=== PATIENT | female | born 1960 | race African-American/Black ===

== ENCOUNTER 2022-08-22 13:00 | Outpatient (RCR) | payer MEDICAID, SELFPAY | END 2022-10-18 13:45 | disposition home or self-care (01) | PROVIDERS: Visit Provider Family Medicine | DX: R53.1 Weakness (principal); Z51.89 Encounter for other specified aftercare | CPT/HCPCS: 97012; 97110; 97162 ==

== ENCOUNTER 2024-02-20 08:43 | Outpatient (CLI) | payer MEDICAID, SELFPAY ==
--- OUTSIDE RECORDS SUMMARY | 2024-02-20 08:46 | XMS_ITS | Clinical Summary ---
Author Organization [facility] Address [place], [place] [address] Care Team Providers Care Orthotist Or Prosthetist Name Role Phone Votel, Hunter Tsai MD Primary Care Provider + Allergies Active Allergy Reactions Criticality Noted Date Comments Ibuprofen *Unknown 06/01/2021 Medications Medication Sig Dispensed Refills Start Date End Date Status cetirizine (ZYRTEC) 10 mg tablet once daily. Active cholecalciferol, Vitamin D3, 2,000 unit tablet once daily. Active triamcinolone, 55 mcg each actuation, nasal (NASACORT AQ) 55 mcg nasal spray Inhale 2 Sprays to both nostrils once daily. 16.9 mL 06/01/2021 Active lancets Use with lancing device 3 times daily for 1 month then decrease to once daily 100 Each 07/13/2021 Active artificial tears, peg 400-propylene glycol, (Systane) 0.4-0.3 % ophthalmic dropperette Place 1-2 Drops into both eyes. 0 06/09/2022 Active durable medical equipment (DME)Indications:Le ft foot pain,Sprain of anterior talofibular ligament of left ankle, initial encounter,Foot sprain, left, initial encounter Stabilizing Speed Pro, Small 1 Each 10/07/2022 Active blood sugar diagnostic (Accu-Chek Guide test strips) stripIndications:Ty pe 2 diabetes mellitus without complication, without long-term current use of insulin (HC) Test 1 time daily 100 Each 3 08/26/2023 Active amLODIPine (NORVASC) 2.5 mg tabletIndications:H TN (hypertension) Take 1 Tablet (2.5 mg) by mouth once daily. 90 Tablet 3 09/26/2023 Active atorvastatin (LIPITOR) 40 mg tabletIndications:H ypercholesterolemia Take 1 Tablet (40 mg) by mouth at bedtime. 90 Tablet 3 09/26/2023 Active metFORMIN (GLUCOPHAGE XR) 500 mg Extended-Release tabletIndications:T ype 2 diabetes mellitus without complication, without long-term current use of insulin (HC) Take 1 Tablet (500 mg) by mouth two times daily with meals. 180 Tablet 3 09/26/2023 Active Active Problems Problem Noted Date Diagnosed Date ASCUS with positive high risk HPV cervical 02/07 Overview: 01/2022 ASCUS/HPV+, HPV 16/18 negative 03/2022 [place]: No biopsy 01/2023 LSIL/HPV+, HPV 16/18 negative. Plan: Pap/HPV due 01/2024. Type 2 diabetes mellitus wit hout complication, without long-term current use of insulin 06/02/2021 Gastroesophageal reflux disease 06/01/2021 HTN (hypertension) 06/01/2021 Allergic rhinitis 06/01/2021 Hypercholesterolemia 07/02/2019 Polyp of colon Immunizations Name Administration Dates Next Due COVID-19 Vaccine Spikevax (M oderna 50mcg/0.5mL) 12YO+ 4584-7039 Formula PF 10/24/2023 COVID-19 vaccine (Moderna 10 0mcg/0.5mL) PF, MDV 12/12/2020,11/14/2020 COVID-19 vaccine (Moderna Bernard lakshmi 50mcg/0.25mL) PF, MDV 04/15/2022,10/01/2021 COVID-19 vaccine (Intervention [employer]ights-Bio NTech 30mcg/0.3mL) 12YO+ BIVALENT PF, MDV 08/09/2022 Influenza, IIV4 10/24/2023,05/26/2022,06/29/2021 Pneumococcal Conj 20-valent (Prevnar 20) 022 Pneumococcal Poly,23-Valent (Pneumovax) 08/31/20 21 Tdap 06/29/2021 Zoster (Shingrix-RZV, recombinant) 08/09/2022, Family History Medical History Relation Name Comments Lung cancer Brother smoker Heart attack Father Diabetes Mother Heart Disease Mother Hyperlipidemia Mother Hypertension Mother Kidney disease Mother Thyroid Disease Mother Cancer-breast No Family History Cancer-ovarian No Family History Relation Name Status Comments Brother Father (Age 61) Mother Alive Social History Tobacco Use Types Packs/Day Years Used Date Smoking Tobacco: Never Smokeless Tobacco: Never Tobacco Cessation:Counseling Given: Yes Alcohol Use Standard Drinks/Week Comments Not Currently 1 (1 standard drink = 0.6 oz pur e alcohol) PHQ-2 Answer Date Recorded PHQ-2 TOTAL SCORE 0 02/07/2023 Social Connections Answer Date Recorded Frequency of Communication with Friends and Fami ly 0 09/26/2023 Financial Resource Strain Answer Date R ecorded Difficulty of Paying Living Expenses 3 09/26/2023 Difficulty of Paying Living Expenses Not on file 09/26/2023 Food Insecurity Answer Date Recorded Worried About Running Out of Food in the Last Ye ar 1 09/26/2023 Transportation Needs Answer Date Record ed Lack of Transportation (Medical) 1 09/26/2023 Housing Stability Answer Date Recorded Unable to Pay for Housing in the Last Year 1 09/26/2023 Sex and Gender Information Value Date Recorded Sex Assigned at Female 08/30/2021 6:22 PM [employer] Gender Identity Female 08/30/2021 6:22 PM [employer] Sexual Orientation Straight 08/30/2021 6: 22 PM [employer]ER Obstetrics History Para Term AB IAB SAB Ectopic Multiple Livin g Live Births 2 2 2 2 Date Outcome GA Total Labor Labor/2nd/3rd Weight Sex Delivery Anes PTL Sarita A1 A5 Name Cl in Term Term Last Filed Vital Signs Vital Sign Reading Time Taken Comments Blood Pressure 118/83 10/11/2023 7:38 AM REMOTE CONTROL ASSEMBLER Pulse 97 10/11/2023 7:38 AM [employer]OTE CONTROL ASSEM[employer]ER Temperature 36.9 ??C (98.4 ??F) 10/11/2023 7:38 AM CS T Respiratory Rate 16 07/18/2022 9:45 AM CDT Oxygen Saturation 96% 10/11/2023 7:38 AM REMOTE [employer]OL ASSEMBLER Inhaled Oxygen Concentration - - Weight 79.7 kg (175 lb 9.6 oz) 10/11/2023 7:38 A M [employer] Height 154.7 cm (5' 0.9) 10/11/2023 7:38 AM [employer]OL ASSEM[employer]ER Body Mass Index 33.29 10/11/2023 7:38 AM REMOTE CONTROL ASSEMBLER Plan of Treatment Health Maintenance Due Date Last Done Comments Pap test for age 21-65 02/08/2024 , 02/07/2023, 02/07/2022, Additional history exists Depression screening for age 12+ 02/11/2024 02/10/2023, 02/07/2023, 02/07/2023, Additional history exists Influenza for age 50-64 05/19/2024 10/24/19, 05/26/2022, 06/29/2021 Mammogram for age 45-75 09/26/2024 09/26/19, 06/24/2022, 06/07/2021 BMI (ht and wt on same day) for age 18+ 10/11/2024 10/11/2023, 09/26/2023, 02/07/2023, Additional history exists Colonoscopy through age 75 07/18/2027 07/18/2022 Lipids for age 45-75 02/08/2028 02/07/2023, 02/07/2022, 06/01/2021 Tetanus booster 06/29/2031 06/29/2021 Tdap Completed 06/29/2021 Hepatitis C screening for ag e 18-79 Completed 08/31/2021 Zoster (shingles) series for age 50+ Completed 08/09/2022, 05/26/2022 Pneumococcal series for age 6-64 Completed 08/30/20, 08/31/2021 HIV for age 15-65 Completed 02/10/2023 COVID-19 vaccine series Completed 10/24/19 24, 08/09/2022, 04/15/2022, Additional history exists Procedures Procedure Name Priority Date/Time Associated Diagnosis Comments XR MAMMO GEOFF BILAT SCREEN Routine 09/26/2023 8:30 AM [employer]OTE [employer]ER Visit for screening mammogram LC HIV-1/O/2, 4TH GENERATION Routine 02/10/2023 9:29 AM CDT Screening for HIV (human immunodeficiency virus) HPV THIN PREP Routine 02/07/2023 8:13 AM CDT High risk HPV infection LIPID PANEL W REFLEX MEASURED LDL Routine 02/07/2023 7:39 AM CDT Hypercholesterolemia COLONOSCOPY 07/18/2022 8:46 AM CDT ANTI HCV Add On 08/31/2021 7:59 AM [employer]OL [employer]ER Need for hepatitis C screening test from Last 3 Months or Most Recently Relevant to Health Maintenance Results * XR MAMMO GEOFF BILAT SCREEN (09/26/2023 8:30 AM REMOTE CONTROL ASSEMBLER) Anatomical Region Laterality Modality BREASTS, Breast Left, Breast Right Bilateral Mammography Impressions 09/28/2023 1:05 PM [employer]OTE CONTROL [employer]SEMBLER ??There is no radiographic evidence for malignancy. ??Recommend annual mammograms. MAMMOGRAM ASSESSMENT: ??ACR 1 Negative PATIENTS: You will also receive a letter with your examination results in an easy to read format. ??If you have questions about your results, please contact your referring provider. Narrative 09/28/2023 1:05 PM REMOTE CONTROL ASSEMBLER For Patients: As a result of the Century Cures Act, medical imaging exams and procedure reports are released immediately into your electronic medical record. You may view this report before your referring provider. If you have questions, please contact your health care provider. XR MAMMO GEOFF BILAT SCREEN [[id number]] CLINICAL HISTORY: ??This is an asymptomatic 63 y.o. patient. INDICATION FOR EXAM: Mammogram Screening. TECHNIQUE: CC & MLO views were obtained. ??This study was evaluated with the assistance of Computer-Aided Detection. Breast Tomosynthesis was used in interpretation. COMPARISON FILM: Yes 06/24/22 [facility] 06/07/21 [facility] FINDINGS: ??The breasts have scattered areas of fibroglandular density. There are no dominant masses, suspicious micro calcifications or areas of architectural distortion. Hunter Chavez MD MAMMO * LC HIV-1/O/2, 4TH GENERATION (02/10/2023 9:29 AM CDT) HIV Scr 4th Gen Non Reactive Non Reactive 02/15/2023 10:10 AM CDT [facility] ([facility]) Comment: HIV Negative HIV-1/HIV-2 antibodies and HIV-1 p24 antigen were NOT detected. There is no laboratory evidence of HIV infection. Blood BLOOD SPECIMEN / Unknown Recollect / Unknown 02/10/2023 9:29 AM CDT 02/10/2023 9:30 AM CDT Narrative [facility] ([facility]) - 02/15/2023 10:10 AM CDT Performed at: ??01 - [facility] [address] [place] [address] ??[id number] Instructor Painting: Tl Martinez MD, Phone: ??[phone] Hunter Chavez MD LABORATORY [facility] ([facility]) [address] [place] [address] * (ABNORMAL) HPV HIGH RISK (02/07/2023 8:13 AM CDT) Pathologist [facility] TYPE 16 Negative Negative 02/09/2023 4:48 PM CDT [facility] TYPE 18 Negative Negative 02/09/2023 4:48 PM CDT [facility] OTHER HIGH RISK TYPES Positive(A) Negative 02/09/2023 4:48 PM CDT [facility] Other (Cervical) Non-Blood / Unknown 02/07/2023 8:13 AM CDT 02/08/2023 3:00 PM CDT Narrative [facility] - 02/09/2023 4:48 PM CDT Specimen is positive for the DNA of any one of, or combination of, the following high risk HPV types: 31, 33, 35, 39, 45, 51, 52, 56, 58, 59, 66, 68. HPV types 16 and 18 DNA were undetectable or below the pre-set threshold. ? Methodology: [employer] 4800 HPV Test Hunter Chavez MD MICROBIOLOGY [facility] [address] [place] [address], [place] * (ABNORMAL) LIPID PANEL W REFLEX MEASURED LDL (02/07/2023 7:39 AM CDT) CHOLESTEROL,TOTAL 203(H) 100 - 199 mg/dL 02/07/2023 4:11 PM CDT [facility] Comment: Cholesterol, Total Reference Ranges Desirable <200 mg/dL Borderline 200-239 mg/dL High >=240 mg/dL TRIGLYCERIDES 155(H) <150 mg/dL 02/07/2023 4:11 PM CDT [facility] HDL CHOLESTEROL 54 >40 mg/dL 4:11 PM CDT [facility] NON-HDL CHOLESTEROL 149(H) <145 mg/dl 02/07/2023 4:11 PM CDT [facility] CHOL/HDL RATIO 3.76 <4.50 02/07/2023 4:11 PM CDT [facility] LDL CHOLESTEROL 118 <=130 mg/dL 02/07/2023 4:11 PM CDT [facility] VLDL CHOLESTEROL 31(H) <=30 mg/dL 02/07/2023 4:11 PM CDT [facility] PROVIDER ORDERED STATUS RANDOM 02/07/2023 4:11 PM CDT [facility] Blood BLOOD SPECIMEN / Unknown Venipuncture / Unknown 02/07/2023 7:39 AM CDT 02/07/2023 7:41 AM CDT Hunter Chavez MD CHEMISTRY [facility] [address] [place] [address], [place] * COLONOSCOPY (07/18/2022 8:46 AM CDT) 07/18/2022 8:46 AM CDT Narrative Transcriptions Angel Luis Marshall MD - 07/18/2022 9:21 AM CDT Endoscopy Patient Name: Josiane Bowman Procedure Date: 07/18/2022 Gender: Female Date of : 1960 Admit Type: Outpatient Procedure: Colonoscopy Proceduralist: Angel Luis Marshall MD - [facility] Referring MD: Yisel Cunningham Indications/Pre-Op Diagnosis: Colon cancer screening in patient atincreased risk: Family history of 1st-degree relative with colon polyps before age 60 years Medications: Monitored Anesthesia Care Procedure Description: The patient had risks, benefits and alternatives explained to andgave informed consent. The patient had a stable cardiopulmonary status and judged an adequate candidate for conscious sedation. The endoscope was passed through the anus and advanced to the cecum, identified by appendiceal orifice and ileocecal valve. Thecolonoscopy was performed without difficulty. The patient tolerated the procedure well. The quality of the bowel preparation was good. Complications: No immediate complications. Estimated Blood Loss & Specimen: Estimated blood loss: none. Specimen collected: Yes and sent to Laboratory Findings: An 8 mm polyp was found in the proximal transverse colon. The polypwas semi-sessile. The polyp was removed with a cold snare. Resection and retrieval were complete. The sigmoid colon and descending colon were redundant. Internal hemorrhoids were found during retroflexion. The hemorrhoids were Grade II (internal hemorrhoids that prolapse but reduce spontaneously). The exam was otherwise without abnormality. Impressions/Post-Op Diagnosis: - One 8 mm polyp in the proximal transverse colon, removed with acold snare. Resected and retrieved. - Redundant colon. - Internal hemorrhoids. - The examination was otherwise normal. Recommendation: - Repeat colonoscopy for surveillance based on pathology results. No aspirin or NSAIDS for five days. High fiber diet. Angel Luis Marshall MD 07/18/2022 9:21:01 AM This report has been signed electronically. Note Initiated On: 07/18/2022 8:46 AM Total Procedure Duration Time 0 hours 17 minutes 55 seconds Scope Withdrawal Time 0 hours 7 minutes 30 seconds Angel Luis Marshall MD PROCEDURE ORD * ANTI HCV (08/31/2021 7:59 AM REMOTE CONTROL ASSEMBLER) HEPATITIS C ANTIBODY Non-React iglesia Non-React iglesia 08/31/2021 10:21 PM REMOTE CONTROL ASSEMBLER [facility] [employer] [facility] Comment:Antibodies to HCV no t detected; does not exclude the possibility of exposure to HCV. Blood BLOOD SPECIMEN / Unknown Venipuncture / Unknown 08/31/2021 7:59 AM REMOTE CONTROL ASSEMBLER 08/31/2021 7:59 AM REMOTE CONTROL ASSEMBLER Yisel SANTANA SEND OUTS [facility] [address] [place] [address], from Last 3 Months or Most Recently Relevant to Health Maintenance Care Teams Orthotist Or Prosthetist Relationship Specialty Start Date End Date Votel, Hunter Tsai MD [address] [place] [address] PCP - General Family Practice 08/09/22
== END 2024-02-20 08:44 | disposition home or self-care (01) ==
PROVIDERS: PCP Family Medicine; Visit Provider Family Medicine
DX: E78.00 Pure hypercholesterolemia, unspecified (principal); I10 Essential (primary) hypertension; E55.9 Vitamin D deficiency, unspecified; E11.9 Type 2 diabetes mellitus without complications; R53.83 Other fatigue; Z79.84 Long term (current) use of oral hypoglycemic drugs; Z13.21 Encounter for screening for nutritional disorder; Z13.29 Encounter for screening for other suspected endocrine disorder
CPT/HCPCS: 80053; 80061; 82043; 82306; 82570; 82607; 84443

== ENCOUNTER 2024-04-16 11:15 | Outpatient (RCR) | payer MEDICAID, SELFPAY ==
--- NOTE | 2024-03-28 15:30 | PT.OPEX ---
PT [place] Outpatient Eval PT [facility] Outpatient Eval Start: 03/28/24 13:47 Freq: Status: Active Protocol: Document 03/28/24 13:48 [facility] (Rec: 03/28/24 15:25 [facility] [id number]) E-signed By Archie Bautista, PT Physical Therapy Outpatient Evaluation Insurance Information Recert Due Date 06/20/24 Insurance Name [employer] Medical Diagnosis Poor balance - h/o falling Treating Diagnosis Unsteadiness on feet R26.81 Falls R29.6 Muscle weakness (R moreso than L LE) M62.81 Referring MD Hortencia Oscar MD Subjective Preferred Name Josiane Subjective Josiane presents with concerns about bilateral leg weakness (R>L) and numbness/tingling in her feet. She will be walking and all of a sudden fall down. She has a history of cervical disc herniation >1 year ago w/ neck and back pain . Treatment of PT w/ cervical traction was helpful, but she still gets intermittent neck/ back pain; she uses the traction machine every 1-2 weeks at home. She also c/o dizziness every day that is worse in the morning or with standing up. Blood work up was normal. Denies nausea, tinnitus, facial paraesthesias , diplopia. She reports intermittent tingling/swelling in thumbs. Josiane also reports history of a diagnosis of diabetes being missed in [place] for greater than one year. During that time she was passing out, getting sleepy & thirsty. Now that she moved to [place], she was diagnosed and is stable on Metformin. 25 yo granddaughter lives with patient. Falls: ~2x/week, stairs are most challenging. She does have a cane she uses when she feels more weak. PMH: cervical disc herniation x > 1 year ago Pain Comments feet: 8/10 shooting pain, comes & goes Date of Last Physician Visit 03/05/24 Current Work Status Unemployed Precautions Weight Bearing Status Full Weight Bearing Therapy Limitations/Systems Review Other Medical Problem Objective Other/Pertinent Objective BP: Sittin/89 Standing : 122/91 Neuro: intact light touch shivam LE, all dermatomes - negative clonus, no LE rigidity w/ PROM, normal LE tone coordination: knee,manriquez,ankle L: normal R: mildly impaired balance: EC feet together: minimal sway x 10 sec SLR: R: negative for neural tension LE ROM: WNL LE strength: R / L hip flexion: 4-/5 / 4/5 knee ext: 4-/5 / 4+/5 knee flex: 4/5 / 4+/5 ankle DF: 4-/5 4/5 ankle PF: 4-/5 4-/5 hip ext: 4-/5 4-/5 hip abd: 4-/5 4/5 hip add: 4/5 4+/5 Palpation: No pain w/ right patellar mobility or compression Functional Test Performed & Score CUEVAS/56 (low fall risk) SLS: R: 21 sec L: 36 sec, maintained balance 4 steps (3-5) w/ rail: reciprocally, I 8 step: + right patellar moderate pain with ascent/ descent. Only mild left patellar pain with ascent/ descent + movie goers knee R Assessment Assessment/Impression 63 year old female presents with concerns of intermittent falls due to sudden onset of LE weakness or shooting pain into feet (this is less of a problem lately) along with underlying paraesthesias bilateral feet. She also reports having right patellar pain with stair climbing/ descent. Pt's story includes have undiagnosed diabetes while she lived in [place] until ~1 year ago. She has since moved to [place] and started on treatment for her diabetes. Josiane presents with right moreso than left LE weakness, impaired right LE coordination , signs & symptoms consistent with diabetic peripheral neuropathy and symptoms consistent with right patellofemoral dysfunction. Despite her h/o falls, she scored 55/56 on the CUEVAS balance scale, placing her at low risk for falls. So, it seems her falls are conditional on the onset of sudden weakness and/or pain. There may be a mild component of orthostatic hypotension as well. I also am curious whether she has a history of an undiagnosed CVA due to right LE impairments. I do recommend skilled PT to address her above listed impairments, but I also feel she would benefit from a Neurology consult. Primary Functional Limitations stair navigation, up & down, especially leading w/ right leg up/ left leg down Legs suddenly going weak or R knee pain causes her to fall Plan of Care Rehabilitation Potential Good Physical Therapy Goals In 8-10 weeks, patient will: 1) Report 75% reduction in fall or near falls (episode of sudden weakness/pain) while ambulating 2) Ambulate up/down full flight of stairs (as she does at home) reciprocally with one rail, right knee pain max 3) Be I with comprehensive HEP to mitigate fall risk and reduce right knee pain with functional activities Treatment Plan/Direct Interventions Gait Training,Neuromuscular Re -ed,Self-Care/Home Management, Therapeutic Activities, Therapeutic Exercises Frequency/Duration 1x/week Patient Will Be Discharged From Therapy Completion of LTG(s), Independent w/HEP, Independently Progressing Evaluation Billing Untimed Code Treatment Minutes 30 Complexity Moderate Certification Information Initial Certification Date 03/28/24 Ending Certification Date 06/20/24 Provider Signature Required Yes Provider Signature Shows Agreement With POC & Medical Necessity Physician NPI Number Write NPI# Here Physician Comment/Change : Physician Signature & Date Requested Please Sign/Date Here
== END 2024-04-16 14:58 | disposition home or self-care (01) ==
PROVIDERS: PCP Family Medicine; Visit Provider Family Medicine
DX: R26.89 Other abnormalities of gait and mobility (principal); Z91.81 History of falling; Z51.89 Encounter for other specified aftercare
CPT/HCPCS: 97110; 97112; 97162

== ENCOUNTER 2024-05-01 06:59 | Day surgery (SDC) | payer MEDICAID, SELFPAY ==
--- OUTSIDE RECORDS SUMMARY | 2024-05-01 07:02 | XMS_ITS | Clinical Summary ---
Author Organization [facility] Address [place], [place] [address] Care Team Providers Care Special Education Secretary Name Role Phone Votel, Hunter Tsai MD [...] nostrils once daily. 16.9 mL 06/01/2021 Active artificial tears, peg 400-propylene glycol, (Systane) [...] with meals. 180 Tablet 3 09/26/2023 Active lancets (Accu-Chek Softclix Lancets)Indications :Type 2 diabetes mellitus without complication, without long-term current use of insulin (HC) Test one time daily 100 Each 3 03/07/2024 Active Active Problems Problem Noted Date Diagnosed Date ASCUS with positive high risk HPV cervical 02/07 Overview: 01/2022 ASCUS/HPV+, HPV 16/18 negative 03/2022 Reynolds: No biopsy 01/2023 LSIL/HPV+, HPV 16/18 negative. Plan: Pap/HPV due 01/2024. Type 2 diabetes mellitus wit hout complication, without long-term current use of insulin 06/02/2021 Gastroesophageal reflux disease 06/01/2021 HTN (hypertension) 06/01/2021 Allergic rhinitis 06/01/2021 Hypercholesterolemia 07/02/2019 Polyp of colon Encounters Date Type Department Care Team Description 03/07/2024 Lab Requisition [facility] [phone] Yumiko Figueroa MD 03/06/2024 Lab Requisition [facility] [phone] Lilo Oscar MD 03/05/2024 Refill [facility] [place] [address] [place] [address] VotelHunter MD Refill Request (Lancets) from Last 3 Months Immunizations Name Administration Dates Next Due COVID-19 Vaccine Spikevax (M oderna 50mcg/0.5mL) 12YO+ [id number] Formula PF 10/24/2023 COVID-19 vaccine (Moderna 10 0mcg/0.5mL) LUIZ PAULSON 12/12/2020,11/14/2020 COVID-19 vaccine (Moderna Bernard lakshmi 50mcg/0.25mL) PF, MDV 04/15/2022,10/01/2021 COVID-19 vaccine (FriendsterBio NTech 30mcg/0.3mL) 12YO+ BIVALENT PF, MDV 08/09/2022 [...] Sex Assigned at Female 08/30/2021 6:22 PM GROUND PRODUCTS DIRECTOR Gender Identity Female 08/30/2021 6:22 PM GROUND PRODUCTS DIRECTOR Sexual Orientation Straight 08/30/2021 6: 22 PM GROUND PRODUCTS DIRECTOR Obstetrics History Para Term AB IAB SAB Ectopic Multiple Livin g Live Births 2 2 2 2 Date Outcome GA Total Labor Labor/2nd/3rd Weight Sex Type Anes PTL Sarita A1 A5 Name Clin Term Term Last Filed Vital Signs Vital Sign Reading Time Taken Comments Blood Pressure 118/83 10/11/2023 7:38 AM GROUND PRODUCTS DIRECTOR Pulse 97 10/11/2023 7:38 AM GROUND PRODUCTS DIRECTOR Temperature 36.9 ??C (98.4 ??F) 10/11/2023 7:38 AM CS T Respiratory Rate 16 07/18/2022 9:45 AM CDT Oxygen Saturation 96% 10/11/2023 7:38 AM GROUND PRODUCTS DIRECTOR Inhaled Oxygen Concentration - - Weight 79.7 kg (175 lb 9.6 oz) 10/11/2023 7:38 A M GROUND PRODUCTS DIRECTOR Height 154.7 cm (5' 0.9) 10/11/2023 7:38 AM GROUND PRODUCTS DIRECTOR Body Mass Index 33.29 10/11/2023 7:38 AM GROUND PRODUCTS DIRECTOR Plan of Treatment Health Maintenance Due Date Last Done Comments Depression screening for age 12+ 02/11/2024 02/10/2023, 02/07/2023, 02/07/2023, Additional history exists Influenza for age 50-64 05/19/2024 10/24/19, 05/26/2022, 06/29/2021 Mammogram for age 45-75 09/26/2024 09/26/19, 06/24/2022, 06/07/2021 BMI (ht and wt on same day) for age 18+ 10/11/2024 10/11/2023, 09/26/2023, 02/07/2023, Additional history exists Pap test for age 21-65 03/05/2025 , 03/05/2024, 02/07/2023, Additional history exists Colonoscopy through age [...] Procedure Name Priority Date/Time Associated Diagnosis Comments LAB TRACKING EVENT Routine 03/06/2024 3: 10 PM CDT PATH TISSUE EXAM Routine 03/06/2024 3:10 PM CDT PUBLICATIONS WRITER THIN PREP PAP SCREEN IMAGED Routine 03/05/2024 3:15 PM CDT HPV THIN PREP Routine 03/05/2024 3:15 PM CDT LAB TRACKING EVENT Routine 03/05/2024 1: 15 PM CDT XR MAMMO GEOFF BILAT SCREEN Routine 09/26/2023 8:30 AM GROUND PRODUCTS DIRECTOR Visit for screening mammogram LC HIV-1/O/2, 4TH GENERATION Routine 02/10/2023 9:29 AM CDT Screening for HIV (human immunodeficiency virus) LIPID PANEL W REFLEX MEASURED LDL Routine 02/07/2023 7:39 AM CDT Hypercholesterolemia COLONOSCOPY 07/18/2022 8:46 AM CDT ANTI HCV Add On 08/31/2021 7:59 AM GROUND PRODUCTS DIRECTOR Need for hepatitis C screening test from Last 3 Months or Most Recently Relevant to Health Maintenance Results * LAB TRACKING EVENT (03/06/2024 3:10 PM CDT) Only the most recent of2 resultswithin the time period is included. Other (Other) Client Collect / Unknown 03/06/2024 3:10 PM CDT 03/07/2024 2:25 PM CDT Yumiko Qi Figueroa MD LAB BILL ONLY [facility] [address] [place] [address], * PATH TISSUE EXAM (03/06/2024 3:10 PM CDT) Case Report Pathology Report ?Case: [id number] ? Authorizing Provider: ??Vu, Yumiko Busby MD ?Collected: ? 03/06/2024 1510 ? Ordering Location: ? [facility] ?Received: ?03/07/2024 1706 ? Pathologist: ? Jarred James MD ? Specimens: ?? A) - Cervical Biopsy, 5 o'clock ? B) - Cervical Biopsy, 12 o'clock ? C) - Endocervical Curettings, ECC ? 03/11/2024 2:58 PM CDT [facility] Final Diagnosis A) CERVIX, 5:00, BIOPSY: 1. Benign cervical mucosa ?? a. Sampling: Ectocervix ?? b. Transformation zone: Not visualized 2. Negative for glandular neoplasia, squamous intraepithelial lesion, ?? and malignancy B) CERVIX, 12:00, BIOPSY: 1. Benign cervical mucosa ?? a. Sampling: Ectocervix ?? b. Transformation zone: Not visualized 2. Negative for glandular neoplasia, squamous intraepithelial lesion, ?? and malignancy C) ENDOCERVIX, CURETTAGE: 1. Minute fragments of high grade squamous intraepithelial lesion (HUMBERTO 2) 2. Sampling: Ectocervix and endocervix 3. Negative for invasive carcinoma 03/11/2024 2:58 PM CDT [facility] Clinical Information Last Pap 02/07/2023 LSIL/HPV positive Colposcopy 04/13/2022 - No biopsies done Pap 02/07/2022 = ASCUS HPV/Positive 03/11/2024 2:58 PM CDT [facility] Gross Description A) Received in formalin, labeled with the patient's name and A, is a single rosa mucosal fragment measuring 0.4 cm. The specimen is submitted in toto in one cassette. B) Received in formalin, labeled with the patient's name and B, is a single rosa mucosal fragment measuring 0.3 cm. The specimen is submitted in toto in one cassette. C) Received in formalin, labeled with the patient's name and C, is a 2.0 x 0.7 x 0.1 cm aggregate of blood tinged mucous. The specimen is entirely submitted in 1 cassette. [facility] 03/07/2024 03/11/2024 2:58 PM CDT [facility] Microscopic Description The final diagnosis is based on microscopic examination of appropriate sections of all specimens. Immunohistochemica l staining was performed, the results of which are as follows: - p16 (Part C): Aberrant over-expression (strong diffuse positive) 03/11/2024 2:58 PM CDT [facility] Additional Information Interpreted at [facility], Central Laboratory - [address], [place] [address] Immunohistochemist ry controls were reviewed and approved by the pathologist during this examination. 03/11/2024 2:58 PM CDT [facility]-C ENTRAL LABORATORY Other (Cervical Biopsy) 03/06/2024 3:10 PM CDT 03/07/2024 5:06 PM CDT Specimen (specimen) (Cervical Biopsy) 03/06/2024 3:10 PM CDT 03/07/2024 5:06 PM CDT Specimen (specimen) (Endocervical Curettings) 03/06/2024 3:10 PM CDT 03/07/2024 5:06 PM CDT Yumiko Qi Figueroa MD PATHOLOGY/CYTOLOGY [facility] [address] [place] [address], * (ABNORMAL) PUBLICATIONS WRITER THIN PREP PAP SCREEN IMAGED (03/05/2024 3:15 PM CDT) Case Report Gynecologic Cytology Report ? Case: [id number] ? Authorizing Provider: ??Lilo Oscar MD ??Collected: ? 03/05/2024 1515 ? Ordering Location: ? [facility] ?Received: ?03/07/2024 1214 ? First Screen: ?Ammy Glaser ? Pathologist: ? Albaro Fields Jr., ? MD ? Specimen: ?PUBLICATIONS WRITER ThinPrep Vial Screening, Cervical/Vaginal ? 03/19/2024 8:57 AM CDT [facility] EN[facility]AL LAB[facility]AT[facility] INTERPRETATION/ RESULT ATYPICAL SQUAMOUS CELLS OF UNDETERMINED SIGNIFICANCE (ASCUS)(A) (none) 03/19/2024 8:57 AM CDT [facility] IMEN ADEQUACY Satisfactory for evaluation No endocervical component seen 03/19/2024 8:57 AM CDT [facility] LABORATORY-C ENTRAL LABORATORY HPV REQUEST HPV and PAP 03/19/2024 8:57 AM CDT [facility] ENTRAL LABORATORY Date of LMP 03/19/2024 8:57 AM CDT [facility] LAB[facility]AT[facility] Comment:Unknown Last Pap Date 02/07/2023 03/19/2024 8:57 AM CDT [facility] LAB[facility]AT[facility] Last Pap Result LSIL 8:57 AM CDT [facility] Abnormal Pap or Reynolds Bx in last 5 years Yes 03/19/2024 8:57 AM CDT [facility] LABORATORY-C ENTRAL LABORATORY Menstrual Status Postmenopausal 03/19/2024 8:57 AM CDT [facility] EN[facility]AL LABORATORY Reynolds Bx Done Today No 03/19/2024 8:57 AM CDT [facility] Additional Information 03/19/2024 8:57 AM CDT [facility] Comment: Interpreted at [facility] - [address] [facility] [[email or web address] [address], [place] [address] Automated Review Successful 03/19/2024 8:57 AM CDT [facility] Comment:Specimen processed s uccessfully by automated academic support director device, ThinPrep Imaging System, [employer] ANCILLARY TESTING PUBLICATIONS WRITER HPV Ordered, Please see separate report 03/19/2024 8:57 AM CDT [facility] Note The pap test is a screening technique, not a diagnostic procedure. It is used primarily to screen for squamous cancers and precursor lesions. Published studies have shown that it is subject to both false negative and false positive results. The pap test should not be used as the sole means to diagnose or exclude pre-malignant and malignant lesions. 03/19/2024 8:57 AM CDT [facility] Other (Cervical/Vagina l) 03/05/2024 3:15 PM CDT 03/07/2024 12:14 PM CDT Lilo Oscar MD PATHOLOGY/CYTOLO GY [facility] [address] [place] [address], * (ABNORMAL) HPV HIGH RISK (03/05/2024 3:15 PM CDT) TYPE 16 Negative Negative 03/08/2024 4:12 PM CDT [facility] TYPE 18 Negative Negative 03/08/2024 4:12 PM CDT [facility] OTHER HIGH RISK TYPES Positive(A) Negative 03/08/2024 4:12 PM CDT [facility] Other (Cervical/Vagina l) 03/05/2024 3:15 PM CDT 03/07/2024 12:14 PM CDT Narrative [facility]AL LABORATORY - 03/08/2024 4:12 PM CDT Specimen is positive for the DNA of any one of, or combination of, the following high risk HPV types: 31, 33, 35, 39, 45, 51, 52, 56, 58, 59, 66, 68. HPV types 16 and 18 DNA were undetectable or below the pre-set threshold. ? Methodology: Yaron Rosaura 4800 HPV Test Lilo Oscar MD MICROBIOLOGY [facility] [address] [place] [address], * XR MAMMO GEOFF BILAT SCREEN (09/26/2023 8:30 AM GROUND PRODUCTS DIRECTOR) Anatomical Region Laterality Modality BREASTS, Breast Left, Breast Right Bilateral Mammography Impressions 09/28/2023 1:05 PM GROUND PRODUCTS DIRECTOR ??There is no radiographic evidence for malignancy. ??Recommend annual mammograms. MAMMOGRAM ASSESSMENT: ??ACR 1 Negative PATIENTS: You will also receive a letter with your examination results in an easy to read format. ??If you have questions about your results, please contact your referring provider. Narrative 09/28/2023 1:05 PM GROUND PRODUCTS DIRECTOR For Patients: As a result of the Century Cures Act, medical imaging exams and procedure reports are released immediately into your electronic medical record. You may view this report before your referring provider. If you have questions, please contact your health care provider. XR MAMMO GEOFF BILAT SCREEN [[id number]] CLINICAL HISTORY: ??This is an asymptomatic 63 y.o. patient. INDICATION FOR EXAM: Mammogram Screening. TECHNIQUE: CC & MLO views were obtained. ??This study was evaluated with the assistance of Computer-Aided Detection. Breast Tomosynthesis was used in interpretation. COMPARISON FILM: Yes [facility] FINDINGS: ??The breasts have scattered areas of fibroglandular density. There are no dominant masses, suspicious micro calcifications or areas of architectural distortion. Hunter Chavez MD MAMMO * LC HIV-1/O/2, 4TH GENERATION (02/10/2023 9:29 AM CDT) Pathologist [facility] HIV Scr 4th Gen Non Reactive Non Reactive 02/15/2023 10:10 AM CDT [facility] Comment: HIV Negative HIV-1/HIV-2 antibodies and HIV-1 p24 antigen were NOT detected. There is no laboratory evidence of HIV infection. Blood BLOOD SPECIMEN / Unknown Recollect / Unknown 02/10/2023 9:29 AM CDT 02/10/2023 9:30 AM CDT Narrative [facility] - 02/15/2023 10:10 AM CDT Performed at: ??[address] ??[id number] Emergency Response Coordinator: Tl Martinez MD, Phone: ??[phone] Hunter Chavez MD LABORATORY [facility]) [address] [place] [address] * (ABNORMAL) LIPID PANEL W REFLEX MEASURED LDL (02/07/2023 7:39 AM CDT) [facility] CHOLESTEROL,TOTAL 203(H) 100 - 199 mg/dL 02/07/2023 4:11 PM CDT [facility] Comment: Cholesterol, Total Reference Ranges Desirable <200 mg/dL Borderline 200-239 mg/dL High >=240 mg/dL TRIGLYCERIDES 155(H) <150 mg/dL 02/07/2023 4:11 PM CDT [facility] HDL CHOLESTEROL 54 >40 mg/dL 4:11 PM CDT [facility] NON-HDL CHOLESTEROL 149(H) <145 mg/dl 02/07/2023 4:11 PM CDT [facility] CHOL/HDL RATIO 3.76 <4.50 02/07/2023 4:11 PM CDT [facility] LDL CHOLESTEROL 118 <=130 mg/dL 02/07/2023 4:11 PM CDT [facility] VLDL CHOLESTEROL 31(H) <=30 mg/dL 02/07/2023 4:11 PM CDT [facility] PROVIDER ORDERED STATUS RANDOM 02/07/2023 4:11 PM CDT [facility] Blood BLOOD SPECIMEN / Unknown Venipuncture / Unknown 02/07/2023 7:39 AM CDT 02/07/2023 7:41 AM CDT Hunter Chavez MD CHEMISTRY [facility] [address] [place] [address], * COLONOSCOPY (07/18/2022 8:46 AM CDT) 07/18/2022 [...] ORD * ANTI HCV (08/31/2021 7:59 AM GROUND PRODUCTS DIRECTOR) HEPATITIS C ANTIBODY Non-React iglesia Non-React iglesia 08/31/2021 10:21 PM GROUND PRODUCTS DIRECTOR [facility] Comment:Antibodies to HCV no t detected; does not exclude the possibility of exposure to HCV. Blood BLOOD SPECIMEN / Unknown Venipuncture / Unknown 08/31/2021 7:59 AM GROUND PRODUCTS DIRECTOR 08/31/2021 7:59 AM GROUND PRODUCTS DIRECTOR Yisel SANTANA [facility] LABORATORY-CENTRAL LABORATORY [address] [place] [address], from Last 3 Months or Most Recently Relevant to Health Maintenance Care Teams Special Education Secretary Relationship Specialty Start Date End Date Votel, Hunter Tsai MD [address] [place] [address] PCP - General Family Practice 08/09/22
--- NOTE | 2024-05-01 07:25 | W.PM.H&PU ---
History & Physical Update History & Physical Update H&P Reviewed and patient assessed: No changes noted
[2024-05-01 07:49] LABS: Hemoglobin* 12.1 gm/dL (12.0-16.0)
[2024-05-01 07:54] VITALS: BP 129/85; PULSE 74; RESP 16; TEMP 36; O2SAT 97; BMI 33.7
[2024-05-01] MEDS: LACTATED RINGERS 1000 ML 1,000 ML 100 ML IV (07:54)
[2024-05-01] MEDS: SODIUM CHLORIDE 0.9 % (FLUSH) 10 ML SYRINGE IVF (07:54)
[2024-05-01 08:04] LABS: Creatinine* 0.6 mg/dL (0.5-1.5); Est. Creatinine Clearance* 43.45; Estimated Glomerular Filt Rate 101 ml/min
--- NOTE | 2024-05-01 08:39 | P.GYNPRC_ITS ---
Procedure Note Time Seen by Provider: 08:39 Date of procedure: 05/01/24 Will [facility] bill your pro fee for this procedure?: Yes Pre-op diagnosis: 1. 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 Exam under anesthesia 2. Colposcopy 3. Cold knife cone Anesthesia: MAC and local Complications: None Surgeon: Yumiko Figueroa MD Estimated blood loss (mL): 25 IV fluids (mL): 900 Urine Output (mL): 100 Pathology: specimen obtained, sent to pathology Condition: stable Disposition: PACU Findings: Exam under anesthesia: Mons normal, clitoris normal, urethral meatus normal. Labia minora and majora normal in appearance bilaterally. Perineum and anus normal appearance. Vaginal introitus normal appearance. Vaginal pink and well rugated with scant white discharge. Cervix pink and without lesion. Bimanual exam reveals uterus to be soft, nontender, mobile, anteverted, of normal size and texture. No palpable adnexal masses or tenderness. Colposcopy: Small amount of Lugol uptake circumferentially near the os. Procedure Description: The patient was taken to the operating room where MAC was administered. EUA revealed the above findings. Colposcopy was performed prior to full surgical prep. A speculum was placed in the patient's vagina and Lugol's solution applied onto the cervix. Colposcopy was performed with the findings noted above. After completion of the colposcopy, surgical prep began. She was prepared and draped in normal sterile fashion in the dorsal lithotomy position in [facility], taking care to avoid lower extremity hyperextension, hyperflexion or compression. A surgical time-out was performed with the entire operative staff per protocol. Pneumoboots were placed and activated. Bladder was drained with a straight cath. A weighted speculum and [place] retractor were placed in the vagina and an Allis was placed on the cervix for traction. An angled stitch of 0 Vicryl sutures were placed at 3:00 a.m. and 9:00 a.m. in the lateral vaginal fornices. The cervix was then painted with Lugol's Solution and the lesion borders visualized. A [place] blade was used to excise a cone shaped biopsy circumferentially around the cervical os. The specimen was removed intact. The Kavorkian curette and an ECC brush was used to obtain the endocervical curetting. An Allis forceps was removed. For hemostasis, the ball tip electrode was then attached and the unit set to coagulate and the base of the cervix and endocervix were cauterized. Additional hemostasis was provided with application of Monsel's solution to the cervix. Excellent hemostasis was noted at the end of the case. All instruments were removed. Debrief performed per protocol and specimen reviewed. 1. Cervical cone biopsy 2. Endocervical curetting Specimen was sent to pathology in formalin. The patient tolerated the procedure well. Sponge, lap and needle counts were correct x 2. The patient was taken to the recovery room in stable condition.
[2024-05-01] MEDS: CEFAZOLIN 2 GM INJ IVP (08:52)
[2024-05-01] MEDS: FERRIC SUBSULFATE 8 GM VIAL 1 VIAL TOPICAL (09:13)
[2024-05-01 09:36] VITALS: BP 139/80; PULSE 86; RESP 16; TEMP 36.2; O2SAT 93
--- NOTE | 2024-05-01 09:40 | W.ANESCHARGE ---
Anesthesia Charges Start Date/Time Anesthesia Start Date: 05/01/24 Anesthesia Start Time: 08:39 Stop Date/Time Anesthesia Stop Date: 05/01/24 Anesthesia Stop Time: 09:38
[2024-05-01 09:45] VITALS: BP 140/94; PULSE 78; RESP 16; O2SAT 95
--- NOTE | 2024-05-01 09:54 | W.ANESCHARGE ---
Anesthesia Charges Start Date/Time Anesthesia Start Date: 05/01/24 Anesthesia Start Time: 08:39 Stop Date/Time Anesthesia Stop Date: 05/01/24 Anesthesia Stop Time: 09:38
[2024-05-01 10:00] VITALS: BP 149/95; PULSE 67; RESP 16; O2SAT 93
[2024-05-01 10:15] VITALS: BP 157/82; PULSE 67; RESP 16; TEMP -15.5; TEMP 4; O2SAT 93
== END 2024-05-01 10:40 | disposition home or self-care (01) ==
LOC: OR 07:01
PROVIDERS: PCP Family Medicine; Visit Provider Obstetrics & Gynecology
PROC: 0UBC7ZZ Excision of Cervix, Via Natural or Artificial Opening (ICD-10-PCS; CPT 57520; principal; 2024-05-01 08:15)
DX: N87.1 Moderate cervical dysplasia (principal); E11.9 Type 2 diabetes mellitus without complications; I10 Essential (primary) hypertension
CPT/HCPCS: 57520; 00940; 36415; 82565; 82962; 85018; 86850; 86900; 86901; 88305; 88307; J0690; J1100; J2250; J2405; J2704; J3010; J3490; J7120

== ENCOUNTER 2024-09-02 08:08 | Outpatient (CLI) | payer MEDICAID, SELFPAY | END 2024-09-02 08:09 | disposition home or self-care (01) | LOC: NFLDREF 18:37 | PROVIDERS: PCP Family Medicine; Referring Provider Family Medicine; Visit Provider Family Medicine | DX: E11.9 Type 2 diabetes mellitus without complications (principal); I10 Essential (primary) hypertension; E78.00 Pure hypercholesterolemia, unspecified; Z79.84 Long term (current) use of oral hypoglycemic drugs | CPT/HCPCS: 80053; 80061 ==

== ENCOUNTER 2024-09-27 14:46 | Outpatient (CLI) | payer MEDICAID, SELFPAY ==
--- NOTE | 2024-09-27 15:00 | CRLHL7_ITS ---
For Patients: As a result of the Century Cures Act, medical imaging exams and procedure reports are released immediately into your electronic medical record. You may view this report before your referring provider. If you have questions, please contact your health care provider. BILATERAL SCREENING MAMMOGRAM WITH COMPUTER-AIDED DETECTION AND TOMOSYNTHESIS TECHNIQUE: CC and MLO views were obtained. These mammographic images have been obtained using full-field digital technique. These mammographic images were interpreted with the benefit of computer-aided detection. Breast Tomosynthesis was used in this interpretation. COMPARISON FILM: 09/26/23, 06/24/22, 06/07/21. FINDINGS: The breasts are almost entirely fatty. IMPRESSION: There is no radiographic evidence for malignancy. ASSESSMENT: BI-RADS Category 1: Negative RECOMMENDATION: Routine screening mammogram in 1 year. A lay language report of this examination will be provided to the patient. Ubaldo Rico M.D. Diagnostic Radiologist [email or web address] SP/Dictated by: Ubaldo Rico MD @ 09/30/2024 11:49:00 AM (Electronically Signed)
== END 2024-09-27 14:47 | disposition home or self-care (01) ==
LOC: MAMMO 14:46
PROVIDERS: PCP Family Medicine; Visit Provider Family Medicine
DX: Z12.31 Encounter for screening mammogram for malignant neoplasm of breast (principal)
CPT/HCPCS: 77063; 77067

== ENCOUNTER 2024-11-05 08:50 | Outpatient (CLI) | payer MEDICAID, SELFPAY ==
[2024-11-09 06:28] LABS: HPV Source Cervical; HPV, High Risk by TMA Not Detected
== END 2024-11-05 08:51 | disposition home or self-care (01) ==
PROVIDERS: PCP Family Medicine; Visit Provider Obstetrics & Gynecology
DX: N87.1 Moderate cervical dysplasia (principal); Z12.4 Encounter for screening for malignant neoplasm of cervix
CPT/HCPCS: 87624; 87625; 88141; 88142

== ENCOUNTER 2025-03-04 07:32 | Outpatient (CLI) | payer MEDICAID, SELFPAY | END 2025-03-04 07:33 | disposition home or self-care (01) | LOC: NFLDREF 03-07 09:03 | PROVIDERS: PCP Family Medicine; Referring Provider Family Medicine; Visit Provider Family Medicine | DX: Z00.00 Encounter for general adult medical examination without abnormal findings (principal); E11.9 Type 2 diabetes mellitus without complications; I10 Essential (primary) hypertension; E78.5 Hyperlipidemia, unspecified; E66.9 Obesity, unspecified; M85.80 Other specified disorders of bone density and structure, unspecified site; Z79.899 Other long term (current) drug therapy | CPT/HCPCS: 80053; 80061; 82043; 82570 ==

== ENCOUNTER 2025-09-02 07:44 | Outpatient (CLI) | payer MEDICARE, MEDICAID, SELFPAY | END 2025-09-02 07:45 | disposition home or self-care (01) | PROVIDERS: PCP Family Medicine; Visit Provider Family Medicine | DX: I10 Essential (primary) hypertension (principal); E78.5 Hyperlipidemia, unspecified; E67.8 Other specified hyperalimentation | CPT/HCPCS: 80053; 80061; 82306; 82607 ==